=== PATIENT | female | born 1965 | race Caucasian/White ===

== ENCOUNTER 2017-09-19 07:57 | Day surgery (SDC) | payer OTHER ==
[~2017-09-19 07:57] MED LIST: ATROPINE 1 MG/10 ML SYRINGE IV; CEFAZOLIN 1 GM INJ; CEFAZOLIN 2 GM/50 ML (PMX) 50 ML IVPB; DIPHENHYDRAMINE 50 MG INJ IV; EPHEDrine SULFATE 50 MG/5 ML SYG IV; FENTAnyl 50 MCG/ML VIAL IV; HYDROmorphONE (0.2 MG/ML) 10ML SYG IV; LABETALOL HCL 20MG INJ IV; LIDOCAINE 100 MG SYRINGE; MIDAZOLAM 1 MG/ML 2 ML INJ IV; OXYCODONE/ACETAMINOPHEN (5/325) TAB PO; SOD CHLORIDE 0.9% 1,000 ML IV; hydrALAzine 20 MG INJ IV; morphine (1 MG/ML) 10ML SYRINGE IV
[2017-09-19 09:13] LABS: ADD MAN DIFF? NO
[2017-09-19 09:18] LABS: BASOPHILS % 0.4 % (0.0-2.0); EOSINOPHILS # 0.1 10^3/ul (0.0-0.5); EOSINOPHILS % 1.4 % (0.0-7.0); HEMOGLOBIN 13.7 g/dl (12.0-16.0); LYMPHOCYTES # 2.3 10^3/ul (0.8-2.9); LYMPHOCYTES % 31.2 % (15.0-51.0); MEAN CORPUSCULAR HEMOGLOBIN 31.9 pg (29.0-33.0); MEAN CORPUSCULAR HGB CONC 34.3 g/dl (32.0-37.0); MEAN PLATELET VOLUME 12.2 fl (7.4-10.4); MONOCYTE # 0.6 10^3/ul (0.3-0.9); MONOCYTES % 8.7 % (0.0-11.0); NEUTROPHIL # 4.2 10^3/ul (1.6-7.5); PLATELET COUNT 172 10^3/UL (140-415)
[2017-09-19 09:18] LABS: WHITE BLOOD COUNT 7.3 10^3/ul (4.8-10.8)
[2017-09-19 09:37] LABS: ALANINE AMINOTRANSFERASE 70 IU/L (13-69); ALBUMIN 3.9 g/dl (3.3-4.9); ALBUMIN/GLOBULIN RATIO 1.08; ALKALINE PHOSPHATASE 76 IU/L (42-121); ANION GAP 16 (8-16); ASPARTATE AMINO TRANSFERASE 42 IU/L (15-46); BILIRUBIN,INDIRECT 0.5 mg/dl (0-1.1); BILIRUBIN,TOTAL 0.5 mg/dl (0.2-1.3); BLOOD UREA NITROGEN 16 mg/dl (7-20); CALCIUM 9.2 mg/dl (8.4-10.2); CARBON DIOXIDE 29 mmol/L (21-31); CHLORIDE 106 mmol/L (97-110); CREATININE 0.72 mg/dl (0.44-1.00); GLUCOSE 141 mg/dl (70-220); POTASSIUM 4.3 mmol/L (3.5-5.1); SODIUM 147 mmol/L (135-144); TOTAL PROTEIN 7.5 g/dl (6.1-8.1)
[2017-09-19 09:50] LABS: INR 0.85; PROTIME 11.7 Sec (11.9-14.9); PT RATIO 0.9
[2017-09-19] MEDS ORDERED: MIDAZOLAM 1 MG/ML 2 ML INJ (10:30)
[2017-09-19] MEDS ORDERED: PROPOFOL 20 ML (10:30)
[2017-09-19] MEDS ORDERED: GLYCOPYRROLATE 0.4 MG INJ (10:30)
[2017-09-19] MEDS ORDERED: ROCURONIUM 50 MG INJ (10:30)
[2017-09-19] MEDS ORDERED: FENTAnyl 50 MCG/ML VIAL (10:30)
[2017-09-19] MEDS ORDERED: NEOSTIGMINE 3 MG/3 ML SYRINGE (10:30)
[2017-09-19] MEDS ORDERED: SUCCINYLCHOLINE CHLORIDE 100 MG/5 ML SYG IV (10:53)
[2017-09-19] MEDS ORDERED: DEXAMETHASONE 4 MG/ML 1 ML INJ (10:54)
[2017-09-19] MEDS ORDERED: ONDANSETRON 4 MG INJ (10:55)
[2017-09-19] MEDS ORDERED: LABETALOL HCL 20MG INJ (11:10)
[2017-09-19] MEDS: ONDANSETRON 4 MG INJ IV (11:53)
[2017-09-19] MEDS: MEPERIDINE 25 MG INJ IV (11:54)
== END 2017-09-19 13:07 | disposition home or self-care (01) ==
LOC: SDS 07:57
DX: Z45.2 Encounter for adjustment and management of vascular access device (principal); E11.9 Type 2 diabetes mellitus without complications; I10 Essential (primary) hypertension
CPT/HCPCS: 36590; 80053; 82962; 84703; 85025; 85610; 85730; 88300